=== PATIENT | female | born 2005 | race Caucasian/White ===

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

== ENCOUNTER 2025-04-18 15:23 | Emergency (ER) | payer BC, OTHER, SELFPAY ==
[2025-04-18 15:25] VITALS: BP 133/83; PULSE 80; RESP 17; TEMP 36.7; O2SAT 98; BMI 22.3
--- NOTE | 2025-04-18 15:33 | RAD_ITS ---
PROCEDURE: CHEST PA AND LATERAL 04/18/2025 REASON FOR EXAM: CHEST PAIN TECHNIQUE: Procedure Code: RADCXR Modality: DX Procedure: CHEST PA AND LATERAL COMPARISON: 12/03/2024 FINDINGS: Lungs/Pleura: Clear. No pneumothorax or pleural effusion. Heart/Mediastinum: Normal in size. Bones/Soft tissues: Unremarkable. RAD/Chest PA and Lateral IMPRESSION: No acute cardiopulmonary disease. Reading Location: [facility]
[2025-04-18 15:40] LABS: Hematocrit 39.9 % (37-47); Hemoglobin 14.0 g/dL (12.0-15.0); Immature Granulocytes Count 0.030 X10^3/uL (0.0-0.0); Mean Corp Hgb Conc 35.1 g/dL (32-36); Mean Corpuscular Volume 85.6 fL (81-99); Mean Platelet Vol. 9.0 fl (6.2-12.0); NRBC Flagged by Analyzer 0 % (0-5); Platelet Count 427 K/mm3 (150-450); RBC Distribution Width CV 12.3 % (11.6-14.6); RBC Distribution Width SD 38.5 fl (35.1-43.9); Red Blood Count 4.66 M/mm3 (4.2-5.4); White Blood Count 11.2 K/mm3 (4.4-11.0)
[2025-04-18 16:13] LABS: Anion Gap 15 (5-15); BUN 8 mg/dL (4-19); BUN/Creat Ratio 12.4 RATIO (10-20); Calcium,Total 9.7 mg/dL (7.6-11.0); Carbon Dioxide 19.6 mmol/L (21.0-32.0); Chloride 103 mmol/L (98-108); Estimated Creatinine Clearance 104.18 ml/min (50-250); Glucose 99 mg/dL (70-99); Potassium 3.5 mmol/L (3.3-5.1); Troponin T High Sensitivity < 6 ng/L (<=14)
--- NOTE | 2025-04-18 17:14 | ED.VIS.CHEST ---
HPI History of Present Illness Chief Complaint: Palpitations Narrative Narrative: Chief complaint and HPI: 20-year-old female with no significant past medical history presents for evaluation of palpitations. Patient states for the past week she has been having intermittent palpitations. States that when she develops a palpitations her Apple Watch reads tachycardia. She states the highest was 140. She endorses some chest tightness with the palpitations. Currently asymptomatic. She denies any fever, chills, shortness of breath, abdominal pain, nausea, vomiting, dysuria. Does not believe herself to be she is on control and her last menstrual cycle was 1 to 2 weeks ago. She denies any thyroid disorder. Does vape nicotine. Review of systems: See HPI Medications: As listed on the chart Allergies: As listed on the chart PFSH: Per chart Vital signs: As listed on the chart. Reviewed. Physical exam: Gen: A&O x3, NAD Head: Normocephalic, atraumatic Eyes: No sclera icterus, conjunctiva clear ENT: Moist mucous membranes Neck: Trachea midline, No JVD CV: RRR, no murmurs, no peripheral edema Resp: Lungs CTA BL, no w/r/c GI: Abd soft, non-distended, non-tender, no r/r/g Musc: Full ROM, no deformity Skin: Warm, dry Neuro: Alert, oriented, grossly intact, sensation intact Psych: Cooperative, appropriate mood and affect [facility] Home Medications ?Medication ?Instructions ?Recorded ?Last Taken ?Type norethindrone 1 mg-ethinyl 1 tab PO DAILY 12/03/24 Unknown History estradiol 20 mcg (21)-iron 75 mg (7) tablet ([place] Fe 08/28 ()) Allergy/AdvReac Type Severity Reaction Status Date / Time amoxicillin Allergy Mild rash Verified 04/18/25 15:28 Surgical History (Updated 12/03/24 @ 03:49 by Peri Lipscomb) History of wisdom tooth extraction Social History Smoking Status: Current every day smoker tobacco type: e-cigarettes EXAM Physical Exam Const Vital Signs: 04/18/25 15:25 04/18/25 15:25 04/18/25 15:33 Temperature 98.1 F Temperature Source Oral Pulse Rate 80 Respiratory Rate 17 Respiratory Effort Normal Non-Labored Blood Pressure 133/83 H Blood Pressure Mean 99 Pulse Ox 98 Oxygen Delivery Method Room Air Room Air 04/18/25 17:25 04/18/25 19:08 Temperature Temperature Source Pulse Rate 75 79 Respiratory Rate 14 17 Respiratory Effort Blood Pressure 124/80 H 110/86 H Blood Pressure Mean 94 94 Pulse Ox 95 100 Oxygen Delivery Method Room Air MDM MDM MDM Narrative Medical decision making narrative: 20-year-old female with no significant past medical history presents for evaluation of palpitations. Patient states for the past week she has been having intermittent palpitations. States that when she develops palpitations her Apple Watch reads tachycardia. She states the highest was 140. She endorses some chest tightness with the palpitations. Currently asymptomatic. Differential diagnosis includes but is not limited to arrhythmia, anemia, electrolyte abnormality, dehydration, thyroid disease, suspect less likely , PE, ACS. CBC with mild leukocytosis 11.2. No anemia. Platelets unremarkable. BMP relatively unremarkable without significant electrolyte abnormality or IRON. D-dimer unremarkable. Troponin unremarkable x 2. Magnesium level unremarkable. TSH unremarkable. UA negative for UTI or . Patient has remained on the monitor here in the emergency department, no palpitations or tachycardia. At this point in time, no clear etiology for patient's palpitations or tachycardia at home. May be secondary to arrhythmia. Patient prescribed a Holter monitor. Follow-up with PCP. She confirmed understand the plan. Patient stable to discharge home. EKG: Interpreted by me/EM physician: EKG shows sinus arrhythmia. Normal QTc. Heart rate 88. Diagnostic: Interpreted by me/EM physician: Chest x-ray without pneumonia, effusion, cardiomegaly, pneumothorax. Radiology in agreement. Impression: 1. Palpitations Lab Data Labs: Laboratory Results - last 24 hr 04/18/25 04/18/25 04/18/25 15:32 17:24 17:45 WBC 11.2 H RBC 4.66 Hgb 14.0 Hct 39.9 MCV 85.6 MCH 30.0 MCHC 35.1 RDW Std Deviation 38.5 RDW Coeff of Ashley 12.3 Plt Count 427 MPV 9.0 Immature Gran % (Auto) 0.300 Neut % (Auto) 64.7 Lymph % (Auto) 28.9 [place] % (Auto) 5.2 Eos % (Auto) 0.4 Baso % (Auto) 0.5 Absolute Neuts (auto) 7.3 Absolute Lymphs (auto) 3.25 Nucleated RBC % 0 D-Dimer Quant (PE/DVT) < 0.27 L Sodium 138 Potassium 3.5 Chloride 103 Carbon Dioxide 19.6 L Anion Gap 15 BUN 8 Creatinine 0.65 L Estim Creat Clear Calc 104.18 Est GFR (MDRD) Non-Af 129 BUN/Creatinine Ratio 12.4 Glucose 99 Calcium 9.7 Magnesium 2.0 Troponin T High Sens < 6 Troponin T Hi Sens 2 Hr < 6 TSH 1.440 Urine Color Straw Urine Clarity Clear Urine pH 7.0 Ur Specific [place] 1.005 Urine Protein Negative Urine Glucose (UA) Normal Urine Ketones Negative Urine Occult Blood Negative Urine Nitrite Negative Urine Bilirubin Negative Urine Urobilinogen Normal Ur Leukocyte Esterase Negative Urine RBC 0 SEEN Urine WBC 0 SEEN Ur Squamous Epith Cells 0-5 SEEN Urine Bacteria RARE Urine Mucus 0 SEEN Urine Test Negative Radiography Diagnostic Testing: Clinical Impression(s) from Imaging Studies Chest X-Ray 04/18/25 15:33 IMPRESSION: No acute cardiopulmonary disease. Reading Location: [facility] Discharge Plan Triage Chief Complaint: Palpitations ED Provider: Samson Torres Dx/Rx/DC Orders Prescriptions: No Action norethindrone-e.estradiol-iron [[place] Fe 08/28 (28)] 1 mg-20 mcg (21)/75 mg (7) tablet 1 tab PO DAILY Primary Care Provider: Lars Casanova Referrals: Lars Casanova MD [Primary Care Provider] - Print Language: Chinese
[2025-04-18 17:25] VITALS: BP 124/80; PULSE 75; RESP 14; O2SAT 95
[2025-04-18 17:28] LABS: Mucous, Urine 0 SEEN /hpf (<or=2+); Red Blood Cells-Urine 0 SEEN /hpf (0-5)
[2025-04-18 17:33] LABS: Color, Urine Straw (Yellow); Glucose, Dipstick Normal (Normal); Ketone-Dipstick Negative (Negative); Leukocyte Esterase-Dipstick Negative /ul (Negative); Nitrite-Dipstick Negative (Negative); Occult Blood-Urine Negative /ul (Negative); Protein-Dipstick Negative (Negative); Specific Gravity, Urine 1.005 (1.002-1.030); Urine Bilirubin Dipstick Negative (Negative)
[2025-04-18 17:35] LABS: Internal QC Validated? YES +Cl - CLEAR BKGD; Pregnancy, Urine Negative Negative; Record Kit Lot#,Urine Preg 964736
[2025-04-18 17:48] LABS: D-Dimer Quantitative (DVT/PE) < 0.27 FEU/ug/m (0.27-0.49)
[2025-04-18 17:51] LABS: Squamous Epithelial Cells - UA 0-5 SEEN /hpf (5-10)
[2025-04-18 18:18] LABS: Troponin T High Sens 2 HR < 6 ng/L (<=14)
[2025-04-18 18:56] LABS: Magnesium 2.0 mg/dL (1.5-2.2)
[2025-04-18 19:08] VITALS: BP 110/86; PULSE 79; RESP 17; O2SAT 100
[2025-04-18 20:43] VITALS: BP 110/80; PULSE 71; RESP 16; TEMP 36.7; O2SAT 100
== END 2025-04-18 20:44 | disposition home or self-care (01) ==
PROVIDERS: Emergency Provider Surgery; Visit Provider Surgery
DX: R00.2 Palpitations (principal); R07.89 Other chest pain; F17.290 Nicotine dependence, other tobacco product, uncomplicated; D72.829 Elevated white blood cell count, unspecified
CPT/HCPCS: 71046; 80048; 81001; 81025; 83735; 84443; 84484; 85025; 85379; 93005; 99283; A4216

== ENCOUNTER → 2025-04-18 | Outpatient (CLI) | payer BC, OTHER, SELFPAY | END | disposition home or self-care (01) | PROVIDERS: Visit Provider Surgery | DX: R00.2 Palpitations (principal) | CPT/HCPCS: 93225; 93226 ==